=== PATIENT | male | born 1965 | race Two or more races ===

== ENCOUNTER 2019-11-09 22:42 | Emergency (ER) | payer OTHER ==
[~2019-11-09] VITALS: Ht 152.4 cm; Wt 75.3 kg
--- NOTE | 2019-11-09 23:44 | NUR ---
PT BIBSELF C/O L LOWER QUADRANT PAIN RADIATING TO GROIN. PT STATES PAIN IS WORSE WHILE BEARING DOWN. PT DENIES NAUSEA/VOMITTING, DYSURIA, FEVER. PT AAOX4. RESPIRATIONS EVEN AND UNLABORED. SKIN WARM AND INTACT. NO ACUTE DISTRESS NOTED AT THIS TIME
--- NOTE | 2019-11-10 01:06 | NUR ---
Patient discharged to home in stable condition. Written and verbal after care instructions given. Patient verbalizes understanding of instruction.Pt ambulatory with a steady gait
[2019-11-10 01:07] VITALS: BP 129/79
== END 2019-11-10 01:07 | disposition home or self-care (01) ==
LOC: ER 22:43
DX: K43.2 Incisional hernia without obstruction or gangrene (principal); F10.10 Alcohol abuse, uncomplicated; F17.200 Nicotine dependence, unspecified, uncomplicated; Y90.9 Presence of alcohol in blood, level not specified; Z98.890 Other specified postprocedural states